=== PATIENT | female | born 2000 | race Caucasian/White ===

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

== ENCOUNTER 2024-04-06 08:19 | Day surgery (SDC) | payer BC ==
[2024-04-06] MEDS ORDERED: Ringers Lactate 1,000 ML IV ONE (08:35)
[2024-04-06] MEDS ORDERED: OFLOXACIN OPH 0.3%-5 ML BTL ONE (08:58)
[2024-04-06] MEDS ORDERED: OXYMETAZOLINE HCL 0.05% 15ML NAS ONE (08:58)
[2024-04-06 09:31] LABS: Urine Specific Gravity/Preg 1.025 (1.005-1.030)
[2024-04-06] MEDS: ACETAMINOPHEN 500 MG TAB ONE (09:36)
[2024-04-06] MEDS ORDERED: LIDOCAINE 1% MPF 5 ML VIAL ONE (10:02)
[2024-04-06] MEDS ORDERED: propofoL 200 MG/20 ML VIAL IV ONE (10:02)
[2024-04-06] MEDS ORDERED: MIDAZOLAM HCL 2 MG/2 ML INJ ONE (10:02)
[2024-04-06] MEDS ORDERED: ONDANSETRON 4 MG/2 ML VIAL ONE ×2 (10:02→10:30)
--- NOTE | 2024-04-06 10:45 | P.OP ---
Date of Service: 04/06/24 Preoperative diagnosis: Recurrent acute otitis media, bilateral without tympanic membrane rupture Postoperative diagnosis: Same Procedure: bilateral myringotomy and tympanostomy tube placement Surgeon: Destiny Santana MD Soa Engineer: None Anesthesia: General via inhalational mask Estimated blood loss: Nil Fluids/blood products: None Specimen: None Implants: Rogers T tubes Findings: Tympanic scarring and retraction with scant right middle ear fluid Indication: The patient had persistent symptoms and abnormal findings in spite of good medical management. Details of operation: The patient was brought to the operating room and placed under general anesthesia via inhalational mask. The left ear was visualized u nder the operating microscope with assistance of an ear speculum. Cerumen was removed from the canal using a wire curette. A myringotomy incision was made in the anterior-inferior quadrant and no fluid was aspirated from the middle ear space. A Rogers T tube was positioned across the incision using an alligator forcep and pick. A similar procedure was performed on the right side. Cerumen was removed from the canal using a wire curette. A myringotomy incision was made in the anterior-inferior quadrant and scant fluid was aspirated from the middle ear space. A Rogers T tube was positioned across the incision using an alligator forcep and pick. The procedure was concluded and the patient was awakened from anesthesia and transported to the recovery room in stable condition. Disposition the patient will be discharged home later today in the care of their family and follow-up with Dr. Santana's office in approximately 1 to 2 weeks. Postoperative plan of care includes routine monitoring in the clinic every [address] Santana or her associates. If the patient develops drainage from the ears, they can be treated with office visit for suctioning and/or prescription of antibiotic drops or combination steroid antibiotic drops. The tubes are expected to extrude within a 2-year timeframe. If not spontaneously extruded, removal of the tubes would be discussed with the family.
[2024-04-06 11:00] VITALS: O2SAT 100
[2024-04-06 13:49] VITALS: BP 114/67; TEMP 98.3
== END 2024-04-06 11:45 | disposition home or self-care (01) ==
LOC: OR 08:19
PROVIDERS: ATTEND Otolaryngology
PROC: 099570Z Drainage of Right Middle Ear with Drainage Device, Via Natural or Artificial Opening (ICD-10-PCS; 2024-04-06)
PROC: 099670Z Drainage of Left Middle Ear with Drainage Device, Via Natural or Artificial Opening (ICD-10-PCS; principal; 2024-04-06 09:30)
DX: H66.006 Acute suppurative otitis media without spontaneous rupture of ear drum, recurrent, bilateral (principal); H66.93 Otitis media, unspecified, bilateral
CPT/HCPCS: 81025; 69436; J2704; J2003; J2250; J2405 ×2; J7120